=== PATIENT | male | born 1990 | race Caucasian/White ===

== ENCOUNTER 2020-01-01 19:22 | Emergency (ER) | payer BC, OTHER ==
[2020-01-01 20:09] VITALS: BP 125/66; PULSE 70
[2020-01-01] MEDS ORDERED: Ibuprofen 600 MG Tab PO ONE (20:30)
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
--- NOTE | 2020-01-02 00:28 | CR ---
Indication: Fall. Pain and swelling Technique: Three views of the right hand Comparison: None available Findings: Bones: A fracture deformity of the base of the 5th metacarpal. No dislocation. Joint spaces: Unremarkable. Soft tissues: Dorsal soft tissue swelling. Impression: A 5th metacarpal base fracture. Dictated by Kelvin Murrell MD @ 01/02/2020 12:26:46 AM Dictated by: Kelvin Murrell MD @ 01/02/2020 00:26:51 (Electronically Signed)
== END 2020-01-01 22:38 | disposition home or self-care (01) ==
LOC: MW.ED 19:22
DX: S62.316A Displaced fracture of base of fifth metacarpal bone, right hand, initial encounter for closed fracture (principal); F17.210 Nicotine dependence, cigarettes, uncomplicated; W19.XXXA Unspecified fall, initial encounter
CPT/HCPCS: 29125; 73130-26-RT; 73130-RT; 99284-25

== ENCOUNTER 2022-05-09 00:32 | Emergency (ER) | payer OTHER ==
[2022-05-09 02:33] VITALS: BP 113/75; PULSE 66
== END 2022-05-09 02:33 | disposition home or self-care (01) ==
LOC: MW.ED 00:32
DX: T63.441A Toxic effect of venom of bees, accidental (unintentional), initial encounter (principal)
CPT/HCPCS: 99282